=== PATIENT | female | born 1935 | race Caucasian/White ===

== ENCOUNTER → 2018-08-25 06:57 | Day surgery (SDC) | payer MEDICARE, OTHER ==
[~2018-08-25 06:57] MED LIST: Buffered Lidocaine 0.9% SYRIN* 5 ML/SYR SYRINGE INTRADERM ONE; Bupivacaine 0.5% W/EPI SDV* 30 ML VIAL ONE; Dexamethasone IV* 4 MG/ML 1 ML (4 MG) IV SLOW PU ONE; Dexamethasone IV* 4 MG/ML 1 ML (4 MG) ONE; Famotidine IV* 10 MG/ML 2 ML (20 mg) IV ONE; Famotidine IV* 10 MG/ML 2 ML (20 mg) ONE; Lactated Ringers 1000 ML Bag* 1,000 ML IV SCH; Lidocaine 1% INJ* 10 MG/ML 30 ML SDV ONE; Lidocaine 2% PF * 5 ML VIAL ONE; Lidocaine 2.5%/Prilocain 2.5%* 5 GM TUBE ONE; Naloxone* 0.4 MG/ML 1 ML VIAL IV PRN; Ondansetron INJ* 2 MG/ML VIAL IV PRN; Propofol* 10 MG/ML 20 ML BTL ONE; ceFAZolin 2 GM PREMIX in ORs 2 GM/50 ML BAG IVPB ONE; fentaNYL* 50 MCG/ML 2 ML VIAL (100 MCG VIAL) IV PRN; fentaNYL* 50 MCG/ML 2 ML VIAL (100 MCG VIAL) ONE
[2018-08-25 16:06] VITALS: BP 157/101
--- NOTE | 2018-08-25 21:29 | OP ---
CC: Dr. Alvarez; Dr. Whitlock; Dr. Can; Dr. Katz OPERATIVE REPORT: DATE OF OPERATION: 08/25/18 DATE OF : 37 SURGEON: Omkar Alvarez MD DIVISIONAL STOREKEEPER: Kate Rankin NP ANESTHESIOLOGIST: Dr. Noriega. ANESTHESIA: LMAC. PRE-OP DIAGNOSIS: Right breast cancer. POST-OP DIAGNOSIS: Right breast cancer. OPERATIVE PROCEDURE: Needle localizing wide excision of right breast cancer with sentinel lymph node biopsy. DESCRIPTION OF PROCEDURE: The patient was supine on the operative table. After adequate intravenous sedation, compression stockings, Piotr Hugger warmer, and intravenous antibiotics, the right chest an d axillary region were prepped with antiseptic, draped in a sterile fashion. Local infiltrative anes thesia was administered in the inferior breast where both wires were identified. Elliptical incision was created approximately 2 x 6 cm and this was carried down to the breast tissue. Upon dissecting out the tissue, the lateral most wire was crossed and it was decided to take this out as a separate p iece, so there was a first piece called right breast excision part 1 and had usual marking sutures an d then a separate suture was used to helen in the place where it was adjacent to the part 2. Part 2 w as then removed. This was taken down to the muscle. It was also marked with usual marking sutures a nd then also had a separate suture used to helen where it was adjacent to part 1. These were sent to Radiology, which confirmed adequate excision and then an additional piece of superior tissue was take n and marked with the suture for the true superior margin. The area was irrigated. Hemostasis was o btained using electrocautery and closure was accomplished using 3-0 and 5-0 Vicryl. Attention was tu rned to the axilla where approximately 3-cm incision was created under local anesthetic and 2 sentine l nodes were identified. There was an adjacent node that came out with them that did not appear to b e hot and all these 3 nodes were all sent for pathologic evaluation. There was absolutely no hot act ivity in axilla at that point. Closure was accomplished using 3-0 and 5-0 Vicryl followed by Steri-S trips. She tolerated the procedure well, was awakened, and brought to Recovery in good condition. N o complications. No drains. Pathologic specimens as above. Sponge and instrument counts were correc t. Estimated blood loss 30 to 50 mL. [id number]/[facility] #: [id number]
== END | disposition home or self-care (01) ==
LOC: SDS 06:57
PROVIDERS: ATTEND Surgery
DX: C50.511 Malignant neoplasm of lower-outer quadrant of right female breast (principal); M19.90 Unspecified osteoarthritis, unspecified site
CPT/HCPCS: 77061; 78195; 88305; 88307; 88341; 88342; 88360; A9270-GY; A9541; G0279; J0690; J1100; J2704; J3010